=== PATIENT | female | born 1995 | race Caucasian/White ===

== ENCOUNTER 2020-12-27 00:11 | Emergency (ER) | payer OTHER ==
[~2020-12-27] VITALS: Ht 160 cm; Wt 72.6 kg
[2020-12-27 00:26] VITALS: BP 121/62
--- NOTE | 2020-12-27 00:32 | NUR ---
PATIENT TO BED 8 AMBULATORY
[2020-12-27] MEDS ORDERED: DEXAMETHASONE 10 MG/ML VIAL PO ONE (00:50)
[2020-12-27] MEDS ORDERED: ALBUTEROL 0.083% 2.5 MG/3 ML NEBU INH ONE ×2 (00:50→02:15)
--- NOTE | 2020-12-27 01:29 | NUR ---
X-Ray at bedside.
--- NOTE | 2020-12-27 01:40 | NUR ---
patient sitting in bed locked in lowest position x1 side rail up, breathing even and unlabored. NAD, noted will continue to monitor.
[2020-12-27] MEDS ORDERED: BECL10.62 INH (02:41)
[2020-12-27] MEDS ORDERED: INHA1SPA24 MC (02:41)
[2020-12-27] MEDS ORDERED: PRON INH (02:44)
[2020-12-27 03:18] VITALS: BP 135/79
--- NOTE | 2020-12-27 03:18 | NUR ---
Patient discharged with v/s stable. Written and verbal after care instructions given and explained. Patient alert, oriented and verbalized understanding of instructions. Ambulatory with steady gait. All questions addressed prior to discharge. ID band removed. Patient advised to follow up with PMD. Rx of Beclomethasone Dipropionate, Inhaler, Albuterol sulfate given. Patient educated on indication of medication including possible reaction and side effects. Opportunity to ask questions provided and answered.
== END 2020-12-27 03:18 | disposition home or self-care (01) ==
LOC: MED 00:11
DX: J45.909 Unspecified asthma, uncomplicated (principal)
CPT/HCPCS: 71045; 81002; 81025; 94640; 99284; J1100; J7613